=== PATIENT | female | born 1965 | race Asian ===

== ENCOUNTER → 2023-03-06 | Day surgery (SDC) | payer OTHER | END | disposition home or self-care (01) | LOC: FMAMMOTONE 08:59 | PROVIDERS: ATTEND Surgery | PROC: 0HBT3ZX Excision of Right Breast, Percutaneous Approach, Diagnostic (ICD-10-PCS; principal; 2023-03-06) | DX: D05.11 Intraductal carcinoma in situ of right breast (principal); N64.1 Fat necrosis of breast; N64.89 Other specified disorders of breast; R92.8 Other abnormal and inconclusive findings on diagnostic imaging of breast | CPT/HCPCS: 19081; 76098-TC-FY; 87899; 88305-TC; A4648 ==

== ENCOUNTER 2023-03-28 10:30 | Inpatient (IN) | payer OTHER ==
[2023-05-01] MEDS ORDERED: HEPARIN NA (PORCINE) 5,000 UNITS/ML 1ML VIAL ONE (07:15)
[2023-05-01] MEDS ORDERED: BUPIVACAINE LIPOSOME/PF (EXPAREL) 266 MG/20 ML VIAL ONE (07:15)
[2023-05-01] MEDS ORDERED: PAPAVERINE HCL 30 MG/1 ML 10 ML VIAL NR ONE (07:15)
[2023-05-01] MEDS ORDERED: BUPIVACAINE HCL/PF 0.5% (5MG/ML) 10 ML VIAL ONE (07:15)
[2023-05-01] MEDS ORDERED: ISOSULFAN BLUE 50 MG/5 ML VIAL SQ ONE (07:17)
[2023-05-01] MEDS ORDERED: BUPIVACAINE HCL/PF 0.25% (2.5MG/ML) 10 ML VIAL ONE (07:49)
[2023-05-01] MEDS ORDERED: ROCURONIUM BROMIDE 50 MG/5 ML SYRINGE ONE ×4 (08:35→14:38)
[2023-05-01] MEDS ORDERED: PROPOFOL 20 ML ONE ×2 (08:35→09:26)
[2023-05-01] MEDS ORDERED: LIDOCAINE HCL/PF 2% SDV 5ML VIAL ONE (08:35)
[2023-05-01] MEDS ORDERED: FENTANYL CITRATE/PF 50 MCG/ML VIAL ONE ×9 (08:35→18:09)
[2023-05-01] MEDS ORDERED: MIDAZOLAM HCL 2 MG/2 ML SINGLE DOSE VIAL ONE (08:35)
[2023-05-01] MEDS ORDERED: SUCCINYLCHOLINE CHLORIDE 200 MG/10 ML SYRINGE ONE (08:42)
[2023-05-01] MEDS ORDERED: SCOPOLAMINE HYDROBROMIDE 1 PATCH PATCH.TD72 ONE (08:53)
[2023-05-01] MEDS ORDERED: ACETAMINOPHEN INJECTION 100 ML IVPB ONE (08:53)
[2023-05-01] MEDS ORDERED: ceFAZolin SODIUM 1 GM VIAL IVPB ONE ×2 (09:10→19:15)
[2023-05-01] MEDS ORDERED: HEPARIN NA (PORCINE) 5,000 UNITS/ML 1ML VIAL SQ ONE (09:40)
[2023-05-01] MEDS ORDERED: SUGAMMADEX SODIUM 200 MG/2 ML VIAL ONE (12:01)
[2023-05-01] MEDS ORDERED: ceFAZolin SODIUM 1 GM VIAL ONE ×3 (13:01→19:22)
[2023-05-01] MEDS ORDERED: SODIUM CHLORIDE 0.9% P/F 10 ML VIAL IJ ONE (13:01)
[2023-05-01] MEDS ORDERED: ONDANSETRON 4 MG/2 ML VIAL ONE (13:02)
[2023-05-01] MEDS ORDERED: DEXAMETHASONE SOD PHOSPHATE 4 MG/1 ML VIAL ONE (13:02)
[2023-05-01] MEDS ORDERED: BUPIVACAINE HCL/PF 0.25% (2.5MG/ML) 10 ML VIAL IJ ONE ×2 (13:21→15:27)
[2023-05-01] MEDS ORDERED: BUPIVACAINE LIPOSOME/PF (EXPAREL) 266 MG/20 ML VIAL NR ONE ×2 (13:22→15:27)
[2023-05-01] MEDS ORDERED: HYDROmorphone HCl 2 MG/ML VIAL ONE (13:51)
[2023-05-01] MEDS ORDERED: GLYCOPYRROLATE 0.2 MG/1 ML VIAL ONE (15:51)
[2023-05-01] MEDS ORDERED: NEOSTIGMINE METHYLSULFATE 0.5 MG/1 ML - 10 ML MDV ONE (15:51)
[2023-05-01] MEDS ORDERED: diazePAM 5 MG TABLET PO PRN (16:30)
[2023-05-01] MEDS ORDERED: oxyCODONE HCL 5 MG TABLET PO PRN (16:30)
[2023-05-01] MEDS ORDERED: ONDANSETRON 4 MG/2 ML VIAL IVPUSH PRN (17:44)
[2023-05-01] MEDS ORDERED: HYDROmorphone *PCA* 10MG/50ML DISP.SYRIN PCA SCH (17:45)
[2023-05-01] MEDS ORDERED: LACTATED RINGERS SOLUTION 1,000 ML IV SCH (17:45)
[2023-05-01] MEDS ORDERED: HYDROmorphone *PCA* 10MG/50ML DISP.SYRIN ONE (18:09)
[2023-05-01] MEDS: DEXTROSE 5%-0.45% SALINE 1,000 ML IV SCH (19:25)
[2023-05-01] MEDS: CEFAZOLIN 1 GM in DEXTROSE 5%-WATER - 50 ML IVPB SCH (19:26)
[2023-05-01] MEDS: MUPIROCIN 2% TOPICAL OINTMENT FOR DECOLONIZATION NS SCH (21:45)
[2023-05-01] MEDS: CHLORHEXIDINE GLUCONATE 4% CLEANSER FOR DECOLONIZATION TP SCH (21:45)
[2023-05-01] MEDS: DOCUSATE SODIUM 100 MG CAPSULE (FP) PO SCH (21:45)
[2023-05-02] MEDS: DEXTROSE 5%-0.45% SALINE 1,000 ML IV SCH (00:10)
[2023-05-02] MEDS: CEFAZOLIN 1 GM in DEXTROSE 5%-WATER - 50 ML IVPB SCH ×3 (00:10→12:08)
[2023-05-02] MEDS ORDERED: ACETAMINOPHEN 1000 MG/100 ML BAG IVPB PRN (07:53)
[2023-05-02] MEDS ORDERED: LACTATED RINGERS SOLUTION 1,000 ML/1,000 ML INFUS.BAG IV STA (07:59)
[2023-05-02] MEDS ORDERED: DEXTROSE 5%-0.45% SALINE 1,000 ML IV SCH (08:00)
[2023-05-02 08:05] LABS: INR 1.18 (0.83-1.09); PROTHROMBIN TIME (PATIENT) 13.7 SEC (9.7-13.0)
[2023-05-02 08:07] LABS: POTASSIUM 3.8 mmol/L (3.5-5.1)
[2023-05-02 08:11] LABS: ALBUMIN 2.6 g/dl (3.4-5.0); BLOOD UREA NITROGEN 8.9 mg/dL (7-18); CALCIUM 7.6 mg/dL (8.5-10.1); MAGNESIUM 1.7 mg/dL (1.8-2.4)
[2023-05-02 08:14] LABS: PHOSPHOROUS 2.7 mg/dL (2.5-4.9)
[2023-05-02 08:16] LABS: BASO % 0.1 % (0-2.0); BILIRUBIN,TOTAL 0.3 mg/dL (0.2-1); CREATININE 0.6 mg/dL (0.55-1.3); HEMATOCRIT 27.9 % (32.4-45.2); HEMOGLOBIN 9.3 GM/dL (10.7-15.3); LYMPH % 14.2 % (8-40); MCHC 33.2 g/dl (32.0-36.0); MEAN CELL VOLUME 90.2 fl (80-96); MEAN PLT VOLUME 9.1 fl (7.5-11.1); MONO % 13.7 % (3.8-10.2); PLATELET COUNT 202 10^3/uL (134-434); RBC 3.09 M/mm3 (3.60-5.2); RDW 13.9 % (11.6-15.6); TOT PROT 5.2 g/dl (6.4-8.2); WHITE BLOOD COUNT 10.7 K/mm3 (4.0-10.0)
[2023-05-02] MEDS ORDERED: MAGNESIUM SULFATE IN WATER 2 GM/50 ML IVPB IVPB ONE (08:45)
[2023-05-02] MEDS: ENOXAPARIN NA (PORCINE) 40 MG/0.4 ML DISP.SYRIN SQ SCH (09:02)
[2023-05-02] MEDS: OMEGA-3 ACID ETHYL ESTERS (FATTY-ACIDS) 1 GM CAPSULE (FP) PO SCH (09:03)
[2023-05-02] MEDS: ASPIRIN 325 MG TABLET PO SCH (09:03)
[2023-05-02] MEDS: MUPIROCIN 2% TOPICAL OINTMENT FOR DECOLONIZATION NS SCH ×2 (09:03→21:11)
[2023-05-02] MEDS: DOCUSATE SODIUM 100 MG CAPSULE (FP) PO SCH ×2 (09:03→21:11)
[2023-05-02] MEDS: MAGNESIUM OXIDE 400 MG TABLET (FP) PO SCH (09:03)
[2023-05-02] MEDS: CHOLECALCIFEROL (VIT D3) 1,000 UNIT (25 MCG) TABLET PO SCH (09:03)
[2023-05-02] MEDS: MULTIVITAMINS (DAILY MVI) TABLET (FP) PO SCH (09:03)
[2023-05-02] MEDS: FLUoxetine HCL 20 MG CAPSULE PO SCH (09:08)
[2023-05-02] MEDS: CYANOCOBALAMIN 1,000 MCG TABLET (FP) PO SCH (09:58)
[2023-05-02] MEDS ORDERED: PATIENT'S OWN MEDICATION (NON-FORMULARY) (Multivitamin [Multivitamin] 1 EACH Tablet) PO SCH (10:00)
[2023-05-02] MEDS ORDERED: MAGNESIUM OXIDE 400 MG PO SCH (10:00)
[2023-05-02] MEDS ORDERED: PATIENT'S OWN MEDICATION (NON-FORMULARY) (Omega-3 Fatty Acids [Omega-3] 1,000 MG Capsule) PO SCH (10:00)
[2023-05-02] MEDS: LACTATED RINGERS SOLUTION 1,000 ML/1,000 ML INFUS.BAG IV SCH (12:08)
[2023-05-02] MEDS ORDERED: oxyCODONE HCL 5 MG TABLET PO PRN (16:30)
[2023-05-02] MEDS ORDERED: HYDROmorphone *PCA* 10MG/50ML DISP.SYRIN PCA SCH (18:00)
[2023-05-02] MEDS: CHLORHEXIDINE GLUCONATE 4% CLEANSER FOR DECOLONIZATION TP SCH (21:11)
[2023-05-03] MEDS: LACTATED RINGERS SOLUTION 1,000 ML/1,000 ML INFUS.BAG IV SCH (02:00)
[2023-05-03 07:11] LABS: BASO % 0.4 % (0-2.0); EOS % 0.4 % (0-4.5); HEMATOCRIT 21.9 % (32.4-45.2); HEMOGLOBIN 7.3 GM/dL (10.7-15.3); LYMPH % 18.9 % (8-40); MCH 30.2 pg (25.7-33.7); MCHC 33.3 g/dl (32.0-36.0); MEAN CELL VOLUME 90.9 fl (80-96); MEAN PLT VOLUME 8.7 fl (7.5-11.1); MONO % 11.3 % (3.8-10.2); PLATELET COUNT 152 10^3/uL (134-434); RBC 2.41 M/mm3 (3.60-5.2); RDW 13.6 % (11.6-15.6); WHITE BLOOD COUNT 11.3 K/mm3 (4.0-10.0)
[2023-05-03 07:29] LABS: POTASSIUM 3.7 mmol/L (3.5-5.1)
[2023-05-03 07:34] LABS: CALCIUM 7.3 mg/dL (8.5-10.1)
[2023-05-03 07:35] LABS: ALBUMIN 2.3 g/dl (3.4-5.0); MAGNESIUM 1.8 mg/dL (1.8-2.4)
[2023-05-03 07:38] LABS: CREATININE 0.4 mg/dL (0.55-1.3); PHOSPHOROUS 1.5 mg/dL (2.5-4.9)
[2023-05-03 07:39] LABS: BILIRUBIN,TOTAL 0.4 mg/dL (0.2-1); TOT PROT 4.9 g/dl (6.4-8.2)
[2023-05-03] MEDS: MULTIVITAMINS (DAILY MVI) TABLET (FP) PO SCH (09:57)
[2023-05-03] MEDS: DOCUSATE SODIUM 100 MG CAPSULE (FP) PO SCH ×2 (09:57→21:31)
[2023-05-03] MEDS: ENOXAPARIN NA (PORCINE) 40 MG/0.4 ML DISP.SYRIN SQ SCH (09:57)
[2023-05-03] MEDS: ASPIRIN 325 MG TABLET PO SCH (09:57)
[2023-05-03] MEDS: MAGNESIUM OXIDE 400 MG TABLET (FP) PO SCH (09:57)
[2023-05-03] MEDS: FLUoxetine HCL 20 MG CAPSULE PO SCH (09:57)
[2023-05-03] MEDS: MUPIROCIN 2% TOPICAL OINTMENT FOR DECOLONIZATION NS SCH ×2 (09:57→21:32)
[2023-05-03] MEDS: OMEGA-3 ACID ETHYL ESTERS (FATTY-ACIDS) 1 GM CAPSULE (FP) PO SCH (09:57)
[2023-05-03] MEDS: CHOLECALCIFEROL (VIT D3) 1,000 UNIT (25 MCG) TABLET PO SCH (09:57)
[2023-05-03 10:28] LABS: BASO % 0.5 % (0-2.0); EOS % 0.6 % (0-4.5); HEMATOCRIT 23.9 % (32.4-45.2); HEMOGLOBIN 7.8 GM/dL (10.7-15.3); LYMPH % 16.2 % (8-40); MCH 29.2 pg (25.7-33.7); MCHC 32.5 g/dl (32.0-36.0); MEAN CELL VOLUME 89.9 fl (80-96); MEAN PLT VOLUME 8.3 fl (7.5-11.1); MONO % 7.3 % (3.8-10.2); NEUT % 75.4 % (42.8-82.8); PLATELET COUNT 174 10^3/uL (134-434); RBC 2.66 M/mm3 (3.60-5.2); WHITE BLOOD COUNT 11.2 K/mm3 (4.0-10.0)
[2023-05-03] MEDS ORDERED: ACETAMINOPHEN 1000 MG/100 ML BAG IVPB PRN (10:45)
[2023-05-03] MEDS: CYANOCOBALAMIN 1,000 MCG TABLET (FP) PO SCH (10:52)
[2023-05-03] MEDS ORDERED: oxyCODONE HCL 5 MG TABLET PO PRN (10:54)
[2023-05-03] MEDS ORDERED: NITROGLYCERIN 2% OINTMENT - 1GM PACKET TD SCH (13:00)
[2023-05-03] MEDS: oxyCODONE HCL 5 MG TABLET PO PRN ×2 (13:43→20:45)
[2023-05-03 13:44] VITALS: BMI 28.9
[2023-05-03] MEDS: NITROGLYCERIN 2% OINTMENT - 1GM PACKET TD SCH ×2 (13:45→21:33)
[2023-05-03] MEDS ORDERED: POTASSIUM PHOSPHATE 30 MM in DEXTROSE 5%-WATER - 250 ML IVPB ONE (15:30)
[2023-05-03] MEDS: CHLORHEXIDINE GLUCONATE 4% CLEANSER FOR DECOLONIZATION TP SCH (21:32)
[2023-05-04 07:06] LABS: BASO % 0.4 % (0-2.0); EOS % 2.2 % (0-4.5); HEMATOCRIT 21.6 % (32.4-45.2); HEMOGLOBIN 7.1 GM/dL (10.7-15.3); MCH 29.7 pg (25.7-33.7); MCHC 32.9 g/dl (32.0-36.0); MEAN CELL VOLUME 90.2 fl (80-96); MEAN PLT VOLUME 8.4 fl (7.5-11.1); MONO % 10.1 % (3.8-10.2); NEUT % 65.3 % (42.8-82.8); PLATELET COUNT 155 10^3/uL (134-434); RDW 13.4 % (11.6-15.6); WHITE BLOOD COUNT 11.1 K/mm3 (4.0-10.0)
[2023-05-04 07:31] LABS: POTASSIUM 3.9 mmol/L (3.5-5.1)
[2023-05-04 07:33] LABS: CALCIUM 7.3 mg/dL (8.5-10.1)
[2023-05-04 07:34] LABS: ALBUMIN 2.3 g/dl (3.4-5.0)
[2023-05-04 07:37] LABS: CREATININE 0.4 mg/dL (0.55-1.3); PHOSPHOROUS 2.1 mg/dL (2.5-4.9)
[2023-05-04 07:38] LABS: BILIRUBIN,TOTAL 0.4 mg/dL (0.2-1); TOT PROT 5.1 g/dl (6.4-8.2)
[2023-05-04] MEDS ORDERED: NAPH,MB-DB/K PH,MBDB POWDER PACKET PO ONE (07:59)
[2023-05-04] MEDS: oxyCODONE HCL 5 MG TABLET PO PRN ×2 (08:05→15:48)
[2023-05-04] MEDS: ASPIRIN 325 MG TABLET PO SCH (09:43)
[2023-05-04] MEDS: MUPIROCIN 2% TOPICAL OINTMENT FOR DECOLONIZATION NS SCH ×2 (09:43→21:09)
[2023-05-04] MEDS: ENOXAPARIN NA (PORCINE) 40 MG/0.4 ML DISP.SYRIN SQ SCH (09:44)
[2023-05-04] MEDS: CHOLECALCIFEROL (VIT D3) 1,000 UNIT (25 MCG) TABLET PO SCH (09:44)
[2023-05-04] MEDS: FLUoxetine HCL 20 MG CAPSULE PO SCH (09:44)
[2023-05-04] MEDS: MULTIVITAMINS (DAILY MVI) TABLET (FP) PO SCH (09:44)
[2023-05-04] MEDS: CYANOCOBALAMIN 1,000 MCG TABLET (FP) PO SCH (09:44)
[2023-05-04] MEDS: DOCUSATE SODIUM 100 MG CAPSULE (FP) PO SCH ×2 (09:44→21:07)
[2023-05-04] MEDS: MAGNESIUM OXIDE 400 MG TABLET (FP) PO SCH (09:44)
[2023-05-04] MEDS: OMEGA-3 ACID ETHYL ESTERS (FATTY-ACIDS) 1 GM CAPSULE (FP) PO SCH (09:45)
[2023-05-04] MEDS: NITROGLYCERIN 2% OINTMENT - 1GM PACKET TD SCH ×2 (09:45→21:08)
[2023-05-04 19:01] LABS: BASO % 0.2 % (0-2.0); EOS % 3.1 % (0-4.5); HEMATOCRIT 23.2 % (32.4-45.2); HEMOGLOBIN 7.4 GM/dL (10.7-15.3); LYMPH % 21.7 % (8-40); MCH 28.8 pg (25.7-33.7); MCHC 32.1 g/dl (32.0-36.0); MEAN CELL VOLUME 89.7 fl (80-96); MEAN PLT VOLUME 8.1 fl (7.5-11.1); MONO % 6.9 % (3.8-10.2); NEUT % 68.1 % (42.8-82.8); PLATELET COUNT 220 10^3/uL (134-434); RBC 2.58 M/mm3 (3.60-5.2); RDW 13.9 % (11.6-15.6); WHITE BLOOD COUNT 11.3 K/mm3 (4.0-10.0)
[2023-05-04] MEDS: ACETAMINOPHEN 500 MG TABLET (FP) PO PRN (21:06)
[2023-05-04] MEDS: CHLORHEXIDINE GLUCONATE 4% CLEANSER FOR DECOLONIZATION TP SCH (21:08)
[2023-05-05] MEDS: BENZOCAINE/MENTHOL (CHLORASEPTIC ) LOZENGE MM PRN ×2 (06:37→21:50)
[2023-05-05 07:27] LABS: BASO % 0.5 % (0-2.0); EOS % 3.9 % (0-4.5); HEMATOCRIT 21.3 % (32.4-45.2); HEMOGLOBIN 7.2 GM/dL (10.7-15.3); LYMPH % 19.9 % (8-40); MCH 30.3 pg (25.7-33.7); MCHC 33.7 g/dl (32.0-36.0); MEAN CELL VOLUME 90.1 fl (80-96); MEAN PLT VOLUME 8.4 fl (7.5-11.1); MONO % 9.1 % (3.8-10.2); NEUT % 66.6 % (42.8-82.8); PLATELET COUNT 223 10^3/uL (134-434); RBC 2.37 M/mm3 (3.60-5.2); RDW 13.7 % (11.6-15.6); WHITE BLOOD COUNT 10.4 K/mm3 (4.0-10.0)
[2023-05-05 07:51] LABS: POTASSIUM 3.8 mmol/L (3.5-5.1)
[2023-05-05 07:58] LABS: CALCIUM 7.9 mg/dL (8.5-10.1)
[2023-05-05 07:59] LABS: ALBUMIN 2.3 g/dl (3.4-5.0); BLOOD UREA NITROGEN 8.2 mg/dL (7-18)
[2023-05-05 08:02] LABS: CREATININE 0.3 mg/dL (0.55-1.3); PHOSPHOROUS 2.9 mg/dL (2.5-4.9)
[2023-05-05 08:03] LABS: TOT PROT 5.5 g/dl (6.4-8.2)
[2023-05-05 08:04] LABS: BILIRUBIN,TOTAL 0.4 mg/dL (0.2-1)
[2023-05-05] MEDS: ACETAMINOPHEN 500 MG TABLET (FP) PO PRN ×2 (09:03→21:57)
[2023-05-05] MEDS: ENOXAPARIN NA (PORCINE) 40 MG/0.4 ML DISP.SYRIN SQ SCH (09:09)
[2023-05-05] MEDS: NITROGLYCERIN 2% OINTMENT - 1GM PACKET TD SCH ×2 (09:10→21:50)
[2023-05-05] MEDS: MULTIVITAMINS (DAILY MVI) TABLET (FP) PO SCH (09:11)
[2023-05-05] MEDS: DOCUSATE SODIUM 100 MG CAPSULE (FP) PO SCH ×2 (09:11→21:53)
[2023-05-05] MEDS: MAGNESIUM OXIDE 400 MG TABLET (FP) PO SCH (09:11)
[2023-05-05] MEDS: OMEGA-3 ACID ETHYL ESTERS (FATTY-ACIDS) 1 GM CAPSULE (FP) PO SCH (09:11)
[2023-05-05] MEDS: CHOLECALCIFEROL (VIT D3) 1,000 UNIT (25 MCG) TABLET PO SCH (09:11)
[2023-05-05] MEDS: ASPIRIN 325 MG TABLET PO SCH (09:11)
[2023-05-05] MEDS: MUPIROCIN 2% TOPICAL OINTMENT FOR DECOLONIZATION NS SCH ×2 (09:17→21:53)
[2023-05-05] MEDS: CYANOCOBALAMIN 1,000 MCG TABLET (FP) PO SCH (09:26)
[2023-05-05] MEDS: FLUoxetine HCL 20 MG CAPSULE PO SCH (09:26)
[2023-05-05] MEDS: POLYETHYLENE GLYCOL (HEALTHYLAX) 3350 17 GM PACKET PO SCH ×2 (12:08→21:50)
[2023-05-05] MEDS: MELATONIN 5 MG TABLETS PO PRN (21:50)
[2023-05-05] MEDS: CHLORHEXIDINE GLUCONATE 4% CLEANSER FOR DECOLONIZATION TP SCH (21:51)
[2023-05-06 07:23] LABS: BASO % 0.3 % (0-2.0); EOS % 5.1 % (0-4.5); HEMATOCRIT 25.1 % (32.4-45.2); HEMOGLOBIN 8.4 GM/dL (10.7-15.3); MCH 29.6 pg (25.7-33.7); MCHC 33.5 g/dl (32.0-36.0); MEAN CELL VOLUME 88.3 fl (80-96); MEAN PLT VOLUME 7.8 fl (7.5-11.1); MONO % 9.7 % (3.8-10.2); NEUT % 58.9 % (42.8-82.8); PLATELET COUNT 267 10^3/uL (134-434); RBC 2.85 M/mm3 (3.60-5.2); RDW 14.1 % (11.6-15.6); WHITE BLOOD COUNT 9.8 K/mm3 (4.0-10.0)
[2023-05-06 08:02] LABS: TOT PROT 5.4 g/dl (6.4-8.2)
[2023-05-06 08:06] LABS: CALCIUM 7.7 mg/dL (8.5-10.1)
[2023-05-06 08:07] LABS: ALBUMIN 2.2 g/dl (3.4-5.0); BLOOD UREA NITROGEN 6.9 mg/dL (7-18)
[2023-05-06 08:10] LABS: CREATININE 0.3 mg/dL (0.55-1.3)
[2023-05-06 08:11] LABS: BILIRUBIN,TOTAL 0.4 mg/dL (0.2-1)
[2023-05-06] MEDS: NITROGLYCERIN 2% OINTMENT - 1GM PACKET TD SCH ×2 (09:42→21:43)
[2023-05-06] MEDS: DOCUSATE SODIUM 100 MG CAPSULE (FP) PO SCH ×2 (09:44→21:45)
[2023-05-06] MEDS: OMEGA-3 ACID ETHYL ESTERS (FATTY-ACIDS) 1 GM CAPSULE (FP) PO SCH (09:45)
[2023-05-06] MEDS: CYANOCOBALAMIN 1,000 MCG TABLET (FP) PO SCH (09:45)
[2023-05-06] MEDS: POLYETHYLENE GLYCOL (HEALTHYLAX) 3350 17 GM PACKET PO SCH ×3 (09:46→21:43)
[2023-05-06] MEDS: MULTIVITAMINS (DAILY MVI) TABLET (FP) PO SCH (09:46)
[2023-05-06] MEDS: MAGNESIUM OXIDE 400 MG TABLET (FP) PO SCH (09:46)
[2023-05-06] MEDS: ASPIRIN 325 MG TABLET PO SCH (09:46)
[2023-05-06] MEDS: ENOXAPARIN NA (PORCINE) 40 MG/0.4 ML DISP.SYRIN SQ SCH (09:46)
[2023-05-06] MEDS: FLUoxetine HCL 20 MG CAPSULE PO SCH (09:46)
[2023-05-06] MEDS: CHOLECALCIFEROL (VIT D3) 1,000 UNIT (25 MCG) TABLET PO SCH (09:46)
[2023-05-06] MEDS: MUPIROCIN 2% TOPICAL OINTMENT FOR DECOLONIZATION NS SCH (09:47)
[2023-05-06] MEDS: oxyCODONE HCL 5 MG TABLET PO PRN (09:50)
[2023-05-06] MEDS: ACETAMINOPHEN 500 MG TABLET (FP) PO PRN (19:30)
[2023-05-06] MEDS: MELATONIN 5 MG TABLETS PO PRN (21:43)
[2023-05-06] MEDS: BENZOCAINE/MENTHOL (CHLORASEPTIC ) LOZENGE MM PRN (21:44)
[2023-05-06] MEDS: CHLORHEXIDINE GLUCONATE 4% CLEANSER FOR DECOLONIZATION TP SCH (21:45)
[2023-05-07 07:21] LABS: BASO % 0.6 % (0-2.0); EOS % 6.4 % (0-4.5); HEMATOCRIT 24.6 % (32.4-45.2); HEMOGLOBIN 8.2 GM/dL (10.7-15.3); LYMPH % 23.6 % (8-40); MCH 29.8 pg (25.7-33.7); MCHC 33.4 g/dl (32.0-36.0); MEAN CELL VOLUME 89.2 fl (80-96); MEAN PLT VOLUME 7.4 fl (7.5-11.1); MONO % 9.4 % (3.8-10.2); PLATELET COUNT 287 10^3/uL (134-434); RBC 2.76 M/mm3 (3.60-5.2); RDW 14.2 % (11.6-15.6); WHITE BLOOD COUNT 8.5 K/mm3 (4.0-10.0)
[2023-05-07 07:32] LABS: POTASSIUM 4.1 mmol/L (3.5-5.1)
[2023-05-07 07:36] LABS: CALCIUM 8.2 mg/dL (8.5-10.1); MAGNESIUM 2.1 mg/dL (1.8-2.4)
[2023-05-07 07:39] LABS: PHOSPHOROUS 4.4 mg/dL (2.5-4.9)
[2023-05-07 07:40] LABS: CREATININE 0.3 mg/dL (0.55-1.3)
[2023-05-07] MEDS: POLYETHYLENE GLYCOL (HEALTHYLAX) 3350 17 GM PACKET PO SCH (10:01)
[2023-05-07] MEDS: OMEGA-3 ACID ETHYL ESTERS (FATTY-ACIDS) 1 GM CAPSULE (FP) PO SCH (10:02)
[2023-05-07] MEDS: CHOLECALCIFEROL (VIT D3) 1,000 UNIT (25 MCG) TABLET PO SCH (10:02)
[2023-05-07] MEDS: ASPIRIN 325 MG TABLET PO SCH (10:02)
[2023-05-07] MEDS: MULTIVITAMINS (DAILY MVI) TABLET (FP) PO SCH (10:02)
[2023-05-07] MEDS: DOCUSATE SODIUM 100 MG CAPSULE (FP) PO SCH (10:02)
[2023-05-07] MEDS: ACETAMINOPHEN 500 MG TABLET (FP) PO PRN (10:02)
[2023-05-07] MEDS: MAGNESIUM OXIDE 400 MG TABLET (FP) PO SCH (10:02)
[2023-05-07] MEDS: NITROGLYCERIN 2% OINTMENT - 1GM PACKET TD SCH (10:03)
[2023-05-07] MEDS: ENOXAPARIN NA (PORCINE) 40 MG/0.4 ML DISP.SYRIN SQ SCH (10:03)
[2023-05-07] MEDS: CYANOCOBALAMIN 1,000 MCG TABLET (FP) PO SCH (11:00)
[2023-05-07] MEDS: FLUoxetine HCL 20 MG CAPSULE PO SCH (11:00)
[2023-05-07 11:39] VITALS: RESP 18
[2023-05-07 13:02] VITALS: BP 109/66; PULSE 82; TEMP 98.5
== END 2023-05-07 13:30 | disposition home or self-care (01) | DRG 581 ==
LOC: J2C 05-01 03:56 → EDSTATUS 05-01 08:30 → JICU 05-01 20:00
PROVIDERS: ADMIT Plastic Surgery; ATTEND Internal Medicine
PROC: 4A1GXSH Monitoring of Skin and Breast Vascular Perfusion using Indocyanine Green Dye, External Approach (ICD-10-PCS; 2023-05-01)
PROC: 0HTV0ZZ Resection of Bilateral Breast, Open Approach (ICD-10-PCS; principal; 2023-05-01 08:30)
PROC: 07B50ZX Excision of Right Axillary Lymphatic, Open Approach, Diagnostic (ICD-10-PCS; 2023-05-01 08:30)
PROC: 0HRV077 Replacement of Bilateral Breast using Deep Inferior Epigastric Artery Perforator Flap, Open Approach (ICD-10-PCS; 2023-05-01 08:30)
PROC: 3E0T3BZ Introduction of Anesthetic Agent into Peripheral Nerves and Plexi, Percutaneous Approach (ICD-10-PCS; 2023-05-01 08:30)
PROC: 30233N1 Transfusion of Nonautologous Red Blood Cells into Peripheral Vein, Percutaneous Approach (ICD-10-PCS; 2023-05-05)
DX: C50.911 Malignant neoplasm of unspecified site of right female breast (principal); K59.00 Constipation, unspecified; G89.18 Other acute postprocedural pain; D64.9 Anemia, unspecified; E83.39 Other disorders of phosphorus metabolism; R33.8 Other retention of urine; E83.42 Hypomagnesemia
CPT/HCPCS: 0241U-QW; 36415; 36430; 78195-TC; 80048; 80053; 83735; 84100; 85025; 85610; 86850; 86900; 86901; 86922; 88307-TC; 88331-TC; 88341-TC; 94760; 97116-GP; 97162-GP; A9541; J1644; P9058

== ENCOUNTER 2023-05-24 08:18 | Day surgery (SDC) | payer OTHER ==
[2023-05-24] MEDS ORDERED: CEFAZOLIN SODIUM 2 GM in DEXTROSE 5%-WATER 100 ML IVPB ONE (09:28)
[2023-05-24] MEDS ORDERED: ceFAZolin SODIUM 1 GM VIAL IVPB ONE ×2 (10:05→12:32)
[2023-05-24] MEDS ORDERED: MIDAZOLAM HCL 2 MG/2 ML SINGLE DOSE VIAL ONE (10:27)
[2023-05-24] MEDS ORDERED: PROPOFOL 40 ML ONE (10:27)
[2023-05-24] MEDS ORDERED: SUCCINYLCHOLINE CHLORIDE 200 MG/10 ML SYRINGE ONE (10:29)
[2023-05-24 11:15] LABS: BASO % 0.7 % (0-2.0); EOS % 2.8 % (0-4.5); HEMATOCRIT 34.6 % (32.4-45.2); LYMPH % 26.7 % (8-40); MCH 28.4 pg (25.7-33.7); MCHC 31.9 g/dl (32.0-36.0); MEAN CELL VOLUME 89.1 fl (80-96); MEAN PLT VOLUME 7.2 fl (7.5-11.1); NEUT % 60.8 % (42.8-82.8); PLATELET COUNT 390 10^3/uL (134-434); RBC 3.88 M/mm3 (3.60-5.2); WHITE BLOOD COUNT 8.6 K/mm3 (4.0-10.0)
[2023-05-24 11:23] LABS: POTASSIUM 4.2 mmol/L (3.5-5.1)
[2023-05-24 11:24] LABS: INR 1.1 (0.83-1.09); PROTHROMBIN TIME (PATIENT) 12.7 SEC (9.7-13.0)
[2023-05-24 11:25] LABS: ALBUMIN 3.4 g/dl (3.4-5.0); CALCIUM 9.4 mg/dL (8.5-10.1)
[2023-05-24 11:27] LABS: ACTIVATED PTT 31.9 SECONDS (25.2-36.5)
[2023-05-24 11:28] LABS: CREATININE 0.5 mg/dL (0.55-1.3)
[2023-05-24 11:30] LABS: BILIRUBIN,TOTAL 0.4 mg/dL (0.2-1); TOT PROT 7.1 g/dl (6.4-8.2)
[2023-05-24] MEDS ORDERED: SCOPOLAMINE HYDROBROMIDE 1 PATCH PATCH.TD72 TD SCH (12:00)
[2023-05-24] MEDS ORDERED: ROCURONIUM BROMIDE 50 MG/5 ML SYRINGE ONE ×2 (12:15→13:43)
[2023-05-24] MEDS ORDERED: SUGAMMADEX SODIUM 200 MG/2 ML VIAL ONE (13:22)
[2023-05-24] MEDS ORDERED: MINERAL OIL 25 ML OIL TP ONE (14:15)
[2023-05-24] MEDS ORDERED: ONDANSETRON 4 MG/2 ML VIAL IVPUSH PRN (16:18)
[2023-05-24] MEDS ORDERED: oxyCODONE HCL 5 MG TABLET PO PRN (16:28)
[2023-05-24] MEDS ORDERED: ACETAMINOPHEN 325 MG TABLET (FP) PO PRN (16:28)
[2023-05-24] MEDS ORDERED: LACTATED RINGERS SOLUTION 1,000 ML IV SCH (16:30)
[2023-05-24 18:09] VITALS: BMI 27.2
[2023-05-24] MEDS: oxyCODONE HCL 5 MG TABLET PO PRN (18:13)
[2023-05-24] MEDS: CEFAZOLIN 1 GM in DEXTROSE 5%-WATER - 50 ML IVPB SCH (21:12)
[2023-05-25] MEDS: oxyCODONE HCL 5 MG TABLET PO PRN (03:42)
[2023-05-25] MEDS: CEFAZOLIN 1 GM in DEXTROSE 5%-WATER - 50 ML IVPB SCH ×2 (03:46→12:34)
[2023-05-25 07:08] VITALS: RESP 18
[2023-05-25 11:41] VITALS: BP 110/62; PULSE 91; TEMP 98.8
== END 2023-05-25 14:43 | disposition home or self-care (01) ==
LOC: JER 08:18 → JERBED 09:30 → UNDOADMIN 09:30 → JASUSAT 16:24 → J6S 17:47 → JASUSAT 05-25 14:43
PROVIDERS: ATTEND Plastic Surgery
PROC: 0HBJXZZ Excision of Left Upper Leg Skin, External Approach (ICD-10-PCS; 2023-05-24)
PROC: 0HR5X74 Replacement of Chest Skin with Autologous Tissue Substitute, Partial Thickness, External Approach (ICD-10-PCS; principal; 2023-05-24 10:30)
DX: T86.828 Other complications of skin graft (allograft) (autograft) (principal); Z90.13 Acquired absence of bilateral breasts and nipples
CPT/HCPCS: 36415; 80053; 85025; 85610; 85730; 86140; 86850; 86900; 86901; 88305-TC; 93005; 93010; 94760; 99285-25